=== PATIENT | female | born 1990 ===

== ENCOUNTER 2017-08-22 12:10 | Day surgery (SDC) | payer OTHER, SELFPAY ==
[~2017-08-22 12:10] MED LIST: Dexamethasone 20 MG/5 ML VIAL ONE; Glycopyrrolate 0.2 MG/ML 5 ML SYRINGE ONE; Lidocaine 1% PF 5 ML VIAL ONE; Ondansetron HCl/PF 4 MG/2 ML Vial ONE; PHENYLEPHRINE-NS 100 MCG/ML 10 ML SYRINGE ONE; PROPOFOL 200 MG/20 ML VIAL ONE; Succinylcholine Chloride 20 MG/ML 10 ml SYRINGE FS ONE
[2017-08-22] MEDS ORDERED: Morphine 4 MG/ML VIAL ONE ×2 (13:27→13:57)
[2017-08-22] MEDS ORDERED: Ondansetron HCl/PF 4 MG/2 ML Vial ONE (13:28)
[2017-08-22 13:30] LABS: #Basophils 0.1 thou/uL (0.0-0.2); #Eosinphils 0.1 thou/uL (0.0-0.7); #Lymphocytes 1.4 thou/uL (1.20-3.40); #Monocytes 0.6 thou/uL (0.11-0.59); #Neutrophils 10.4 thou/uL (1.40-6.50); %Basophils 0.4 % (0.0-1.0); %Eosinophils 0.4 % (0.0-10.0); %Lymphocytes 10.8 % (21.0-51.0); %Monocytes 4.9 % (0.0-10.0); %Neutrophils 83.4 % (42.0-75.0); Hemoglobin 12.6 g/dL (12.0-16.0); Mean Corpuscular Hemoglobin 31.9 pg (27.0-31.0); Mean Corpuscular Volume 96.7 fl (81.0-99.0); Mean Platelet Volume 6.4 fL (7.4-10.4); Platelet Count 357 thou/uL (130-400); RBC Distribution Width 11.2 % (11.5-14.5); Red Blood Cell (RBC) Count 3.94 mill/uL (4.20-5.40); White Blood Cell (WBC) Count 12.5 thou/uL (4.8-10.8)
[2017-08-22 13:57] LABS: ALT (SGPT) 10 U/L (8-55); AST (SGOT) 20 U/L (5-34); Albumin 4.7 g/dL (3.5-5.0); Alkaline Phosphatase 44 U/L (40-150); Anion Gap 18 mmol/L (10-20); BUN (Urea Nitrogen) 18 mg/dL (7.0-18.7); Bilirubin, Total 0.6 mg/dL (0.2-1.2); Calc. Creatinine Clearance 0 mL/min (70-130); Calcium 9.7 mg/dL (7.8-10.44); Carbon Dioxide 18 mmol/L (22-29); Chloride 103 mmol/L (98-107); Estimated GFR-MDRD Greater than 90; Globulin 2.9 g/dL (2.4-3.5); Glucose 110 mg/dL (70-105); Potassium 3.6 mmol/L (3.5-5.1); Protein, Total 7.6 g/dL (6.0-8.3); Sodium 135 mmol/L (136-145)
--- NOTE | 2017-08-22 15:27 | ULT ---
PELVIC ULTRASOUND: HISTORY: Heavy vaginal bleeding x 3 weeks. Positive serum beta HCG. COMPARISON: None. TECHNIQUE: Transabdominal and endovaginal imaging of the pelvis is performed. Ovaries are interrogated with gra y scale, color flow, Doppler imaging, with spectral waveform analysis. FINDINGS: The uterus is identified, without any myometrial masses. The uterus measures 3.6 x 3.9 x 6.6 cm. Th ere is a small amount of fluid in the endometrium. Endometrial diameter is 0.7 cm. Left ovary has a normal echotexture measuring 2.0 x 2.7 x 2.8 cm. In the right adnexa, there is a complex echotexture focus measuring 8.8 x 5.5 x 5.5 cm. There is inc reased vascular flow. There is fluid in the right adnexa and in the cul-de-sac. OVARIAN DOPPLER: There is vascular flow to the normal-appearing left ovary. There is increased flow to the right adne xal mass. IMPRESSION: Abnormal echotexture in the right adnexa which is presumed to be an ectopic until proven ot herwise. CO[employer]AMER consultation recommended. Results of the study were discussed with Sandra Menjivar 08/22/17 at 3:13 p.m. CODE CR POS: LOVE
[2017-08-22 15:29] LABS: Bilirubin Negative (Negative); Blood, Urine Large (Negative); Clarity CLEAR (Clear); Glucose, Urine (Dipstick) Negative (Negative); Leukocyte Negative (Negative); Nitrite Negative (Negative); Protein, Urine (Dipstick) Negative (Neg-Trace); Specific Gravity, Urine 1.018 (1.002-1.036); Urobilinogen 0.2 mg/dL (0.2-1.0); pH, Urine 5.5 (5.0-9.0)
[2017-08-22 15:34] LABS: Bacteria/HPF None Seen HPF (None Seen); Hyaline Casts/LPF 0-3 HYALINE CAST LPF (0-3 Hyaline); Squamous Epithelial 0-3 HPF (0-3); WBC/HPF 0-3 HPF (0-3)
[2017-08-22] MEDS ORDERED: Bupivacaine HCl 0.5%/Epinephrine 1:200,000/PF 30 ml Vial ONE (16:03)
[2017-08-22] MEDS ORDERED: Fentanyl 100 MCG/2 ML VIAL ONE ×2 (16:27)
[2017-08-22] MEDS ORDERED: Midazolam HCl 2 mg/2 ml Vial ONE (16:27)
[2017-08-22] MEDS ORDERED: CEFAZOLIN/Water 2 GM/20 ML SYRINGE ONE (16:44)
[2017-08-22 18:15] LABS: Lactic Acid 1.5 mmol/L (0.5-2.2)
[2017-08-22] MEDS ORDERED: Ondansetron HCl/PF 4 MG/2 ML Vial IVP PRN ×3 (18:19→22:19)
[2017-08-22] MEDS ORDERED: HYDROmorphone 2 MG/ML VIAL SLOW IVP PRN ×2 (18:19)
[2017-08-22] MEDS ORDERED: Promethazine HCl 25 MG/ML VIAL IM PRN ×3 (18:19→22:19)
[2017-08-22] MEDS ORDERED: Promethazine HCl 25 MG/ML VIAL SLOW IVP PRN ×2 (18:19)
--- NOTE | 2017-08-22 18:34 | HP ---
DATE OF ADMISSION: 08/22/2017 REASON FOR ADMISSION: Suspected right ectopic . HISTORY OF PRESENT ILLNESS: Ms. Macedo is a 27-year-old primigravida who sees Dr. María Reynaga at [facility]. She had ultrasound and laboratory work a week or so ago which reveale d a slowly rising and then declining beta without any obvious adnexal mass or intrauterine . She seemed to have a missed . She presents today with right lower quadrant pain, onset thi s morning and was noted to have a beta hCG of approximately 2700 with an 8 x 5 x 5 cm right adnexal m ass on ultrasound that is complex in an empty uterus. OB AND HEALTH AND WELLNESS INSTRUCTOR HISTORY: No history of STDs, no history of dysplasia. PAST MEDICAL HISTORY: Kidney stones. PAST SURGICAL HISTORY: None. ALLERGIES: Denies. MEDICATIONS: None. SOCIAL HISTORY: Denies tobacco, alcohol, or drug use. FAMILY HISTORY: Noncontributory. REVIEW OF SYSTEMS: Noncontributory. PHYSICAL EXAMINATION: GENERAL: A pleasant white female in moderate distress. The patient reports that her pain is greater than that that she experienced with her kidney stone. VITAL SIGNS: Pulse is 89, respirations 18, blood pressure 118/72, temperature 98.6. HEENT: Within normal limits. LUNGS: Clear to auscultation bilaterally. HEART: Regular rhythm. ABDOMEN: Soft, without marked distention, but with guarding in the right lower quadrant. No CVA ten derness is noted. PELVIC: Deferred. EXTREMITIES: Without clubbing, cyanosis or edema. LABORATORY STUDIES: Blood type A positive. Hematocrit 38%, white count 12.5. Normal base met, beta hCG is 2600, beta hCG on the th was 984; on the was 1140 and on the was 932. IMPRESSION: Complex adnexal mass with rising beta hCGs, no intrauterine consistent with ec topic . PLAN: Discussed with patient options. We will proceed with diagnostic laparoscopy and likely laparo scopic right salpingectomy. The patient understands risks, benefits of procedure and gives verbal an d written informed consent. We will administer appropriate antibiotic and DVT prophylaxis.
[2017-08-22] MEDS ORDERED: Morphine 5 MG/ML SYRINGE SLOW IVP PRN (22:19)
[2017-08-22] MEDS ORDERED: HYDROcodone/Acetaminophen 5/325 mg Tablet PO PRN ×2 (22:19)
[2017-08-22] MEDS ORDERED: Ibuprofen 800 MG TAB PO SCH (22:30)
[2017-08-22] MEDS: Sodium Chloride 0.9% 1,000 ML IV SCH (22:40)
[2017-08-23] MEDS: Sodium Chloride 0.9% 1,000 ML IV SCH
[2017-08-23 01:01] VITALS: BMI 21.1
[2017-08-23 05:29] LABS: Hemoglobin 9.7 g/dL (12.0-16.0); Mean Corpuscular HGB CONC 33.9 g/dL (32.0-36.0); Mean Corpuscular Hemoglobin 32.6 pg (27.0-31.0); Mean Corpuscular Volume 96.1 fl (81.0-99.0); Mean Platelet Volume 6.3 fL (7.4-10.4); Platelet Count 261 thou/uL (130-400); RBC Distribution Width 11.1 % (11.5-14.5); Red Blood Cell (RBC) Count 2.96 mill/uL (4.20-5.40); White Blood Cell (WBC) Count 5.6 thou/uL (4.8-10.8)
[2017-08-23] MEDS ORDERED: Ibuprofen 800 MG TAB PO SCH (06:00)
[2017-08-23 08:18] VITALS: TEMP 98.8
[2017-08-23 08:24] VITALS: BP 92/51
--- NOTE | 2017-08-23 11:46 | OP ---
DATE OF PROCEDURE: 08/22/2017 PREOPERATIVE DIAGNOSIS: Suspected right tubal ectopic . POSTOPERATIVE DIAGNOSES: 1. Right tubal ectopic . 2. Hemoperitoneum. SURGEON: María Reynaga D.O. NICKEL PLANT OPERATOR: Leobardo Mosley M.D. COMPLICATIONS: None. ESTIMATED BLOOD LOSS: Minimal from surgery approximately 10-15 mL ( hemoperitoneum found was approximately 250 mL). IV FLUIDS: 1000 mL. URINE OUTPUT: 400 mL ANESTHESIA: General. FINDINGS: Normal appearing external genitalia, normal vaginal and cervical epithelium, normal appearing uterus, right ovary and left fallopian tube and ovary, right tubal ectopic with hemoperitoneum. INDICATIONS FOR THE PROCEDURE: Ms. Nelia Macedo is a 27-year-old G1, P0 who presented to clinic with early and complained of vaginal bleeding. The patient had undergone serial beta hCGs which had declined and based on patient's initial complaints of increased vaginal bleeding with clots, it was initially thought that patient had a spontaneous miscarriage. However, the patient then presented to the ER on 08/22/2017 with increasing abdominal pain. A transvaginal ultrasound was done and a right tubal ectopic was found, due to the size and acute abdominal pain, diagnostic laparoscopy with a probable right salpingectomy vs salpingostomy was recommended. The patient was amenable to the procedure. PROCEDURE IN DETAIL: The patient was brought to the operating room. She was placed under general anesthesia. The patient was placed in dorsal lithotomy position using Nilton stirrups. She was prepped and draped in a sterile fashion. She was given Ancef preoperatively. An official timeout was performed. The vaginal portion was begun with a single sided speculum placed into the vagina and Hulka was placed from the uterine manipulation. A Grijalva catheter was placed. Gloves exchanged. An infraumbilical incision was made using the scalpel. The Veress needle was inserted into the peritoneal cavity and the peritoneum was insufflated using carbon dioxide. A 5-mm trocar was placed at the incision point. The patient was then placed in Trendelenburg position. Two additional ports were placed in the right and left aspect of the abdomen using a 5 mm trocar. All trocar sites were injected with local anesthetic with 0.5% Marcaine with epinephrine. The hemoperitoneum was cleared from the pelvis to allow visualization of the anatomy. The right tubal ectopic was not ruptured; however, there was bleeding from the distal end of the tube. the ectopic was the entire length of the fallopian tube therefore the fallopian tube could bot be preserved. The right fallopian tube was removed in its entirety from distal to proximal end using LigaSure device and hemostasis was achieved. The left fallopian tube and ovary were evaluated and appeared normal. The pelvis was then thoroughly irrigated and cleared of all clot and debris. A suprapubic incision was made using scalpel and 10 mm trocar was inserted under direct visualization. An EndoCatch bag was placed into the abdomen and the right fallopian tube was placed in EndoCatch bag. This was pulled through the trocar and the specimen was removed in multiple portions and collected. A Dedrick-Radha was used to close the 10 mm trocar site. The pelvis was again thoroughly irrigated and cleared of all clot and debris. The instruments were removed from the abdomen. The patient was taken out of Trendelenburg, the abdomen was deflated and trocars were removed. The skin was closed using 4-0 Monocryl and Dermabond. There were no complications. All counts were correct x2. The Hulka device was removed and the site was hemostatic. The patient was extubated without difficulty and she tolerated the procedure well. ANASTASIA
== END 2017-08-23 08:40 | disposition home or self-care (01) ==
LOC: ERS 12:10 → 3SW 16:06 → SDC 16:27 → 3SW 18:22 → UNDOADMOB 18:22 → 3SW 22:19 → SDC 08-23 08:40 → UNDODISOB 08-23 08:40
PROVIDERS: ATTEND Obstetrics & Gynecology
PROC: 10T24ZZ Resection of Products of Conception, Ectopic, Percutaneous Endoscopic Approach (ICD-10-PCS; principal; 2017-08-22)
PROC: 0UT54ZZ Resection of Right Fallopian Tube, Percutaneous Endoscopic Approach (ICD-10-PCS; principal; 2017-08-22)
DX: O00.101 Right tubal pregnancy without intrauterine pregnancy (principal); K66.1 Hemoperitoneum
CPT/HCPCS: 36415; 76856; 80053; 81003; 81015; 83605; 84702; 85025; 85027; 86850; 86900; 86901; 87040; 88305; 96361; 96374; 96375; J0670; J1100; J2001; J2250; J2270; J2405; J2704; J3010